=== PATIENT | female | born 1985 ===

== ENCOUNTER 2020-04-12 12:49 | Outpatient (REF) | payer OTHER, SELFPAY | END 2020-04-12 12:50 | disposition home or self-care (01) | LOC: HO.LAB 12:49 | PROVIDERS: Visit Provider Internal Medicine | DX: Z20.828 Contact with and (suspected) exposure to other viral communicable diseases (principal) | CPT/HCPCS: U0003 ==

== ENCOUNTER → 2021-12-19 12:57 | Outpatient (REF) | payer OTHER, SELFPAY ==
--- NOTE | 2021-12-19 13:00 | CA_ITS ---
Transthoracic Echocardiogram Patient (Last, First, Middle): Roberta Medrano J Gender: Female Date of : 1985 Age: 36 Procedure Date: 12/19/2021 Procedure Type: Transthoracic Echocardiogram Location: OP Height: 154.94 cm Weight: 78.47 kg BSA: 1.78 m2 Heart Rate: bpm BP: 150 / 90 mmHg Licensed Esthetician: SB Referring MD: Prasanna Dumont MD Symptoms: Q21.1 - Atrial septal defect Study Quality: Adequate ECG Rhythm: Sinus Conclusions: - 1. Normal LV systolic and diastolic function 2. Mild aortic regurgitation 3. No pericardial effusion Findings Left Ventricle Normal left ventricular size, thickness, and systolic function. The visually estimated ejection fraction is between 60-65%. Spectral Doppler is indicative of a normal filling pattern. Right Ventricle Normal right ventricular cavity size and systolic function. Atria Both atria are normal in size. Interatrial shunt cannot be excluded. reported possible shunting across interatrial septum is not clearly visible on this study. Consider alternative imaging. Aortic Valve The aortic valve structure and function is likely normal. There is no aortic valve stenosis. There is mild aortic valve regurgitation. Mitral Valve Normal mitral valve structure and function. There is trace mitral valve regurgitation. There is no mitral valve stenosis. Pulmonic Valve The pulmonic valve was not well visualized. Tricuspid Valve Likely normal tricuspid valve structure and function. Tricuspid regurgitation envelope is inadequate for calculation of right ventricular systolic pressure. Normal right atrial pressure. Great Vessels All visible segments of the aorta are normal in size. The pulmonary artery was not well visualized. Venous The inferior vena cava is normal in size and collapses greater than 50% with inspiration. Pericardium/Pleural There is no evidence of pericardial effusion. Measurements 2D Linear Measurements IVSd: 1.08 0.6-0.9/0.6-1.0 cm LVIDd: 4.78 3.9-5.3/4.2-5.9 cm LVIDd Index: 2.69 2.4-3.2/2.2-3.1 cm/m2 LVIDs: 3.10 2.0-3.6 cm LVPWd: 0.66 0.7-1.1 cm LA Diam: 3.30 2.7-3.8/3.0-4.0 cm LAIDs Index: 1.85 1.5-2.3 cm/m2 LV Mass: 174.80 67-162/88-224 g LV Mass Index: 98.20 43-95/49-115 g/m2 LVOT Diam: 2.10 3.0+(-)1.3 cm 2D Systolic Function EF 4C: 67.60 >55% Mitral Valve MV Pk E: 1.02 MV PK A: 0.75 MV Decel Time: 230.00 E/A: 1.40 E'Lateral: 11.30 E'Medial: 7.72 E/E' Med: 13.20 E/E' Lat: 9.00 PHT: 67.00 MVA PHT: 3.28 Decel [place]: 4.43 Aortic Valve AoV Pk Chidi: 1.48 AoV Mn Chidi: 1.05 AoV VTI: 0.29 AoV Pk Grad: 9.00 Aov Mn Grad: 5.00 JAMIL Cont.VTI: 2.88 LVOT LVOT Pk Chidi: 1.28 LVOT Mn Chidi: 0.90 LVOT VTI: 0.24 LVOT Pk Grad: 7.00 LVOT Mn Grad: 4.00 LVOT Diam: 2.10 LVOT Area: 3.46 Diastolic Function MV Pk E: 1.02 MV Pk A: 0.75 E/A: 1.40 E'Medial: 7.72 E/E' Med: 13.20 E' Laterial: 11.30 E/E' Lat: 9.00 Right Ventricle TAPSE (mm): 28.10 TVS' Chidi: 14.50 Tricuspid Valve RA Press: 3.00 Great Vessels Aorta Sinus of Valsalva: 3.60 2.0-3.5 cm Ao Asc: 3.20 2.1-3.4 cm Pulmonary Veins Pulm Vein S/D 1.30 Pulmonary Valve PV Pk Chidi: 1.10 Peak PV Grad: 5.00 Shunting QP:QS: 0.90 Updated in Other Vendor System with Status of Final Jonathan Jones MD electronically signed on 12/19/2021 4:27:07 PM with status of Final
== END ==
LOC: HO.CARD 12:57
PROVIDERS: Visit Provider Internal Medicine
DX: Q21.1 Atrial septal defect (principal)
CPT/HCPCS: 93306

== ENCOUNTER → 2022-02-23 11:16 | Outpatient (BNVA) | payer OTHER, SELFPAY | PROVIDERS: PCP Internal Medicine; Visit Provider Internal Medicine | DX: Q21.1 Atrial septal defect (principal); I35.1 Nonrheumatic aortic (valve) insufficiency; I10 Essential (primary) hypertension | CPT/HCPCS: 93005 ==

== ENCOUNTER 2024-04-21 15:47 | Emergency (ER) | payer BC, SELFPAY ==
--- NOTE | ~2024-04-21 | CT_ITS ---
EXAMINATION: CT CHEST WITHOUT CONTRAST CLINICAL INFORMATION: Shortness of breath, cough. COMPARISON: None available. TECHNIQUE: Multidetector volumetric CT imaging of the chest was done. Axial MIP volume rendering provided. Sagittal and coronal reformatted images were obtained. This CT examination was performed using dose optimization techniques as appropriate, variously including the following: *Automated exposure control *Adjustment of mA and/or kV according to patient size (this includes techniques or standardized protocols for targeted exams where dose is matched to indication/reason for exam; i.e. extremities or head) *Use of iterative reconstruction technique DLP: 212 mGy-cm FINDINGS: Evaluation is limited due to motion. LUNGS: Mild diffuse bronchial wall thickening. Scattered groundglass nodules and opacities in the left upper lobe and to a lesser extent left lower lobe. No dense consolidation. Central airways are patent. MEDIASTINUM: Normal heart size. No pericardial effusion. Increased more than usual amount of mediastinal lymph nodes measuring up to 1 cm in short axis, the majority centered in the prevascular space and aortopulmonary window. Limited evaluation of the hilar structures in the absence of intravenous contrast. CORONARY ARTERY CALCIFICATION: None visualized on this study. PLEURA: No pleural effusion or pneumothorax. AXILLA: Dense bilateral breast tissue. No axillary lymphadenopathy. UPPER ABDOMEN: No significant abnormality. OSSEOUS STRUCTURES: Small intermediate density sclerotic focus in the upper sternum measuring 0.5 cm (4:62). CT/CT chest wo IV con IMPRESSION: 1. Scattered groundglass nodules and opacities in the left upper lobe and to a lesser extent left lower lobe suspicious for an atypical infectious/inflammatory process. Recommend follow-up with CT chest in 3-6 months to ensure appropriate resolution. 2. Increased more than usual amount of mediastinal lymph nodes, likely reactive. Attention on follow-up in future examinations is recommended. 3. Small intermediate density sclerotic focus in the upper sternum, nonspecific. Recommend follow-up with the above CT chest in 3-6 months to ensure stability. 4. Dense bilateral breast tissues that would be better characterized with dedicated breast imaging if the patient is due. Fleischner guidelines were followed. Electronically signed by: Cornelia Guallpa MD 04/21/2024 07:02 PM [place]
[2024-04-21 16:16] VITALS: BP 138/79; PULSE 112; RESP 20; TEMP 37; O2SAT 99; BMI 27.8
--- NOTE | 2024-04-21 16:17 | ED_ITS ---
HPI - General Adult General Chief complaint: Dyspnea Stated complaint: Bilateral Pleural Effusion (Referral UrgentCare) Time Seen by Provider: 04/21/24 22:14 Source: patient Mode of arrival: ambulatory Limitations: no limitations History of Present Illness ED Provider: Becka Chavez NP HPI narrative: Patient is a 38-year-old female presents emergency department for referral from urgent care with concern for possible pleural effusions on CXR. Reports over the past week has been experiencing headache, body aches, tactile fevers, dizziness, shortness of breath on exertion. She does admit that since September this year she has been getting sick at least once a month with these flu-like symptoms. She was seen by her primary care doctor in January had some blood work done which she presumed was normal as she did not receive a call, she was advised to take zinc and vitamins. She states that this episode was different because she was experiencing the shortness of breath on exertion which has been abnormal for her. She was concerned that perhaps she may have had pneumonia which prompted her evaluation at urgent care today. She denies any recent unintentional weight loss. Denies personal history of VTE/malignancy. Does not endorse chest pain. Related Data Home Medications ?Medication ?Instructions ?Recorded ?Confirmed ciclopirox 0.77 % topical gel topical 02/23/22 02/23/22 Previous Rx's ?Medication ?Instructions ?Recorded amlodipine 10 mg tablet 10 mg PO DAILY #90 tabs 01/07/24 albuterol sulfate 90 mcg/actuation 2 puff inhalation Q4-6H PRN 04/21/24 aerosol inhaler shortness of breath or wheezing #6.7 grams amoxicillin 500 mg capsule 1,000 mg (2 x 500 mg) PO TID 5 04/21/24 days #30 caps prednisone 20 mg tablet 20 mg PO DAILY #5 tabs 04/21/24 Allergies Allergy/AdvReac Type Severity Reaction Status Date / Time No Known Allergies Allergy Mild NOT Unverified 04/21/24 16:18 APPLICABLE dissolvable sutures Allergy Unknown rash Uncoded 04/21/24 16:18 Telfa Adhesive Dressing Allergy Unknown Rash Uncoded 04/21/24 16:18 Review of Systems 2 Review of Systems: Yes all other systems are reviewed and are negative PMFSH Past Medical History Attestation statement: The following information was validated with the patient. Source: old records reviewed Medical History Essential hypertension Atrial septal defect Surgical History Hx of lumpectomy Hx of hernia repair Hx of tonsillectomy Hx of section Family History Family History (Updated 02/23/22 @ 11:38 by URBANO Niño) Father No problems noted. Mother No problems noted. Social History Social History (Updated 02/23/22 @ 11:38 by URBANO Niño) Patient Tobacco Use Status: Never used Tobacco Smoked in Last 30 Days: No Use of substances other than those prescribed or required for medical reasons: No Advance Directives: No Advance Directives Information Provided: No Do you have a plan to hurt others: No Plan Patient : No Physical Exam ED Vital Signs: Vital Signs - 24 hr 04/21/24 16:16 04/21/24 22:30 Temperature 98.6 F 99.4 F Pulse Rate 112 H 88 Respiratory Rate 20 18 Blood Pressure 138/79 134/81 Pulse Oximetry 99 98 Oxygen Delivery Method Room Air Room Air BMI result Body Mass Index 27.8 Appearance: Alert.?Oriented to person, place and time. No acute distress.?Normal affect. Eyes: Pupils equal, round and reactive to light.? ENT: Pharynx normal.?? Neck: Normal inspection.? Neck supple.?? CVS: Heart sounds normal. Normal heart rate and rhythm.? Pulses normal.?? Respiratory: No respiratory distress.? Lung sounds clear to auscultation bilaterally?? Abdomen: Soft and non-tender. Normoactive bowel sounds. Skin: Skin warm and dry.? Normal skin color.? Extremities: No lower extremity edema.? No calf ttp? Neuro: Moves all extremities spontaneously. Sensation intact bilaterally. No focal neuro deficits. Ambulates with normal steady gait. Course Course Course Narrative: RME performed by Chapis West PA-C. Patient is a 38 year old assigned female at presenting to the emergency department with shortness of breath. Patient states she was seen in the urgent care today and told she had bilateral pleural effusions and needs labs + CT scan. Detailed physical exam and review of systems are deferred to the shield operator. EKG, labs, imaging, and swabs ordered. Patient placed back in the waiting room pending room availability and results. Medical Decision Making Medical Decision Making MDM Narrative: Patient is a 38-year-old female with past medical history of hypertension, atrial septal defect, mild nonrheumatic aortic regurgitation who presents emergency department for evaluation of flu-like symptoms monthly since earlier this year, however the shortness of breath on exertion this time around is the new finding and she was concerned she may have had pneumonia which prompted her concern to the urgent care. Overall well-appearing, nontoxic, afebrile, no respiratory distress. No rash or lesions, urticaria, or evidence of angioedema to suggest allergic reaction/anaphylaxis. No associated chest pain, lower extremity redness pain or swelling, history of VTE/malignancy to suggest ACS. CHF, pericardial effusion, or pulmonary embolism. No palpitations or history of known arrhythmias. No recent trauma or injury, no tracheal deviation, unlikely tension pneumothorax. No acute bleeding or known anemia, no associated dizziness fatigue or chest pain to suggest acute anemia. No history of asthma or COPD to suggest acute exacerbation. CBC is without leukocytosis anemia or thrombocytopenia. No significant electrolyte derangement. No SURINDER. LFTs within normal range. High sensitive troponin below detectable limits. BNP within normal range. HCG is negative. COVID-19/influenza/RSV testing is negative. EKG reveals a sinus tachycardia with ventricular rate of 107, QTC 440, no ST elevation, no ST depression, no T- wave inversion. CT of the chest revealing scattered ground-glass nodules in opacities in the left upper lobe as well as the left lower lobe concerning for atypical infection versus inflammatory process (recommendation for repeat CT in 3-6 months to assess for resolution), likely reactive mediastinal lymph nodes, indeterminate sclerotic focus in the upper sternum (recommendation for repeat CT in 3-6 months), and dense bilateral breast tissues. Patient did have a left breast lumpectomy at the age of 25, reportedly was benign. She reports a great grandmother having breast cancer, but does not have a good understanding a majority of familial history. At this time I am most concerned that she has pneumonia, a walking O2 trial reveals 90-94% . She reports feeling well enough go home, would like to trial outpatient antibiotics. She states that she will return should her symptoms worsen. I have also sent a prescription for an albuterol inhalers low-dose steroid. Discussed CT findings and outpatient follow-up with primary care doctor. All questions were answered. Differential Diagnosis Differential Diagnoses: The differential diagnosis associated with the presentation includes (See narrative above) Admission/Observation Consideration of admission/observation: Escalation of care including admission/observation considered (See narrative above) Lab Data MDM Lab Attestation statement: I reviewed the patient's lab results. (See narrative above) 04/21/24 16:40 04/21/24 16:40 Labs: Lab Results 04/21/24 Range/Units 16:40 WBC 5.1 (4.8-10.8) X10*3/uL RBC 4.37 (4.20-5.50) X10*6/uL Hgb 12.0 (12.0-16.0) g/dl Hct 36.5 L (37.0-47.0) % MCV 83.5 (80.0-98.0) fL MCH 27.5 (27.0-33.0) pg MCHC 32.9 (31.0-35.0) g/dl RDW 12.7 (11.0-16.0) % Plt Count 287 (160-400) X10*3/uL MPV 8.5 L (9.4-12.3) fL Immature Gran % (Auto) 0.4 (0.0-0.4) % Neut % (Auto) 62.5 (45-73) % Lymph % (Auto) 28.4 (20-40) % [place] % (Auto) 6.3 (2-11) % Eos % (Auto) 2.0 (0-4) % Baso % (Auto) 0.4 (0-2) % Lymph # (Auto) 1.5 (1.2-4.9) X10*3/uL [place] # (Auto) 0.3 (0.1-1.2) X10*3/uL Eos # (Auto) 0.1 (0.0-0.4) X10*3/uL Baso # (Auto) 0.0 (0.0-0.2) X10*3/uL Abs Immat Gran (auto) 0.02 (0.00-0.03) X10*3/uL Absolute Neuts (auto) 3.2 (2.0-8.3) x10*3/uL Absolute Nucleated RBC 0.000 (0.0-0.012) X10*3/uL Nucleated RBC % (auto) 0.0 (0.0-0.2) /100WBC Smear Tech's Comments VERIFIED Sodium 143 (135-145) mmol/L Potassium 3.7 (3.3-5.1) mmol/L Chloride 109 H (96-108) mmol/L Carbon Dioxide 25 (22-29) mmol/L Anion Gap 13 (12-20) BUN 11 (9-16) mg/dL Creatinine 0.80 (0.5-1.4) mg/dL Estim Creat Clear Calc 98.5 Estimated GFR > 60 Random Glucose 89 (60-115) mg/dL Calcium 9.7 (8.4-10.2) mg/dL Magnesium 2.0 (1.6-2.6) mg/dL Total Bilirubin 0.3 (0.0-1.0) mg/dL AST 39 H (5-31) U/L ALT 28 (0-31) U/L Alkaline Phosphatase 64 (39-117) U/L Troponin I High Sens < 2.7 (<3.5-17.0) ng/L B-Natriuretic Peptide < 10 (<100) pg/mL Total Protein 7.8 (6.5-8.0) g/dL Albumin 4.3 (3.5-5.0) g/dL Beta HCG, Quant < 2 mIU/mL Influenza Type A (PCR) NEGATIVE (Negative) Influenza Type B (PCR) NEGATIVE (Negative) RSV RNA Qual (PCR) NEGATIVE (Negative) SARS-CoV-2 RNA (RT-PCR) NEGATIVE (Negative) Independent Interpretation I performed an independent interpretation of an: EKG (See narrative above) and CT Scan (Left-sided pneumonia) Radiology Impression Discussion of test interpretation with radiology: I have reviewed the radiologist's reading. Radiologist Impression: CT/CT chest wo IV con IMPRESSION: 1. Scattered groundglass nodules and opacities in the left upper lobe and to a lesser extent left lower lobe suspicious for an atypical infectious/inflammatory process. Recommend follow-up with CT chest in 3-6 months to ensure appropriate resolution. 2. Increased more than usual amount of mediastinal lymph nodes, likely reactive. Attention on follow-up in future examinations is recommended. 3. Small intermediate density sclerotic focus in the upper sternum, nonspecific. Recommend follow-up with the above CT chest in 3-6 months to ensure stability. 4. Dense bilateral breast tissues that would be better characterized with dedicated breast imaging if the patient is due. Prescription Management I considered prescription management with: Antibiotic Discharge Plan Discharge Clinical Impression: Community acquired pneumonia Patient Disposition: Home, Self-Care Instructions: Community Acquired Pneumonia (ED) Additional Instructions: As discussed, based on the CT findings you should follow-up with your primary care doctor, they may consider repeat imaging in 3-6 months to assure that things have improved. Additionally follow-up with any symptoms that have not resolved after the course of treatment. You may return to emergency department any new or worsening symptoms or concerns. Do not stop taking your course of antibiotics earlier skipped any doses even if you begin to feel better. Use the albuterol inhaler as needed for any shortness of breath or difficulty breathing. You can take ibuprofen 200 mg, 3 tablets (600mg) every 6-8 hours as needed for pain, in addition to Tylenol 500 mg, 2 tablets (1,000mg) every 4-6 hours as needed for pain, but not to exceed 3 doses daily (3,000mg).? Prescriptions: New amoxicillin 500 mg capsule 1,000 mg PO TID 5 Days Qty: 30 0RF prednisone 20 mg tablet 20 mg PO DAILY Qty: 5 0RF albuterol sulfate 90 mcg/actuation HFA aerosol inhaler 2 puff inhalation Q4-6H PRN (Reason: shortness of breath or wheezing) Qty: 6.7 0RF No Action amlodipine 10 mg tablet 10 mg PO DAILY Qty: 90 0RF Rx Instructions: please call and schedule follow-up appt for refills ciclopirox 0.77 % gel topical Referrals: Radha Rock MD [Primary Care Provider] - Print Language: Citizen [place]
--- NOTE | 2024-04-21 16:18 | ECG_ITS ---
Test Reason : sob Blood Pressure : / mmHG Vent. Rate : 107 BPM Atrial Rate : 107 BPM P-R Int : 152 ms QRS Dur : 082 ms QT Int : 330 ms P-R-T Axes : 032 -05 042 degrees QTc Int : 440 ms Sinus tachycardia Otherwise normal ECG No previous ECGs available Referred By: Chapis West Electronically Signed By:Leonard Mendoza
[2024-04-21 16:45] LABS: Basophils Percent Auto 0.4 % (0-2); Eosinophils Absolute Auto 0.1 X10*3/uL (0.0-0.4); Hematocrit 36.5 % (37.0-47.0); Imm Gran Abs Auto 0.02 X10*3/uL (0.00-0.03); Imm Gran Pct Auto 0.4 % (0.0-0.4); Lymphocytes Absolute Auto 1.5 X10*3/uL (1.2-4.9); Lymphocytes Percent Auto 28.4 % (20-40); MANUAL DIFF FLAG SCAN; Mean Corpuscular HGB Conc 32.9 g/dl (31.0-35.0); Mean Corpuscular Hemoglobin 27.5 pg (27.0-33.0); Mean Corpuscular Volume 83.5 fL (80.0-98.0); Mean Platelet Volume 8.5 fL (9.4-12.3); Monocytes Absolute Auto 0.3 X10*3/uL (0.1-1.2); Monocytes Percent Auto 6.3 % (2-11); Neutrophils Absolute Auto 3.2 x10*3/uL (2.0-8.3); Neutrophils Percent Auto 62.5 % (45-73); Platelet Count 287 X10*3/uL (160-400); Red Blood Count 4.37 X10*6/uL (4.20-5.50); Red Cell Distribution Width 12.7 % (11.0-16.0); SCAN SMEAR FLAG 1; White Blood Count 5.1 X10*3/uL (4.8-10.8)
[2024-04-21 17:10] LABS: B Type Natriuretic Peptide < 10 pg/mL (<100)
[2024-04-21 17:11] LABS: Alanine Aminotransferase 28 U/L (0-31); Albumin Level 4.3 g/dL (3.5-5.0); Alkaline Phosphatase 64 U/L (39-117); Anion Gap 13 (12-20); Aspartate Amino Transferase 39 U/L (5-31); Bilirubin Total 0.3 mg/dL (0.0-1.0); Blood Urea Nitrogen 11 mg/dL (9-16); Calcium 9.7 mg/dL (8.4-10.2); Carbon Dioxide 25 mmol/L (22-29); Chloride 109 mmol/L (96-108); Creatinine Clr Calc Pharmacy 98.5; Estimated Glomerular Filt Rate > 60; Glucose Random 89 mg/dL (60-115); Potassium 3.7 mmol/L (3.3-5.1); SLIDE REVIEW VERIFIED; Sodium 143 mmol/L (135-145); Total Protein 7.8 g/dL (6.5-8.0)
[2024-04-21 17:12] LABS: HCG Quantitative < 2 mIU/mL; Troponin-I High Sensitivity < 2.7 ng/L (<3.5-17.0)
[2024-04-21 17:35] LABS: Influenza A PCR NEGATIVE (Negative); Influenza B PCR NEGATIVE (Negative); Resp Syncy Virus RNA Qual PCR NEGATIVE (Negative); SARS COV2 PCR INHOUSE NEGATIVE (Negative)
--- NOTE | 2024-04-21 22:17 | PC.NURSE ---
pt from lobby, assume care of pt at this time
[2024-04-21 22:30] VITALS: BP 134/81; PULSE 88; RESP 18; TEMP 37.4; O2SAT 98
[2024-04-21] MEDS: Amoxicillin 500 MG CAPSULE 1000 MG PO (23:53)
[2024-04-22 00:01] VITALS: BP 113/70; PULSE 87; RESP 16; TEMP 37.4; O2SAT 95
== END 2024-04-22 00:02 | disposition home or self-care (01) ==
PROVIDERS: Physician Assistant Medical; Emergency Provider Emergency Medicine; PCP Internal Medicine
DX: J18.9 Pneumonia, unspecified organism (principal); R06.00 Dyspnea, unspecified; J90 Pleural effusion, not elsewhere classified; R10.2 Pelvic and perineal pain; Z03.818 Encounter for observation for suspected exposure to other biological agents ruled out; Z79.899 Other long term (current) drug therapy
CPT/HCPCS: 0241U; 36415; 71250; 80053; 83735; 83880; 84484; 84702; 85025; 93005; 99283; 99285

== ENCOUNTER → 2024-04-21 16:18 | Outpatient (BNV) | payer BC, SELFPAY | PROVIDERS: Emergency Provider Emergency Medicine; PCP Internal Medicine; Visit Provider Internal Medicine Cardiovascular Disease | DX: R00.0 Tachycardia, unspecified (principal) | CPT/HCPCS: 93010 ==

== ENCOUNTER 2024-04-28 13:31 | Outpatient (AMB) | payer BC, SELFPAY ==
[2024-04-28 13:33] VITALS: BP 122/60; PULSE 88; BMI 28.1
--- NOTE | 2024-04-28 13:33 | MHC.OFFVIS ---
Vital Signs 04/28/24 13:33 Height 5 ft 6 in Weight 174 lb 2.643 oz BMI 28.1 BP 122/60 Blood Pressure Location Lt brachial Position Sitting Pulse 88 Pulse Source Pulse Oximeter Intake Visit Reasons: 2 yrs followup w/ekg Allergies No Known Allergies Allergy (Mild, Unverified 04/21/24 16:18) NOT APPLICABLE dissolvable sutures Allergy (Unknown, Uncoded 04/21/24 16:18) rash Telfa Adhesive Dressing Allergy (Unknown, Uncoded 04/21/24 16:18) Rash Medication List - Last Reconciled 04/28/24 by Prasanna Dumont MD albuterol sulfate 90 mcg/actuation 2 puffs inhalation Q4-6H PRN amlodipine 10 mg PO DAILY HPI Comments Details: Roberta returns for follow-up. Has a history of atrial septal defect(vs PFO). She is being followed up every couple of years or so. According to her, told to have atrial septal defect based on echocardiogram from many years ago in [place]. Otherwise, she also developed hypertension after recent . She is maintained on amlodipine. Prior to that, on nifedipine. Blood pressures self is doing quite good. No cardiac complaints. She has been diagnosed with pneumonia and getting treated for that. No specific cardiac concerns. REPLACED BY [facility] Medical History Essential hypertension Atrial septal defect Surgical History Hx of lumpectomy Hx of hernia repair Hx of tonsillectomy Hx of section Family History (Updated 02/23/22 @ 11:38 by UBRANO Niño) Father No problems noted. Mother No problems noted. Social History (Updated 02/23/22 @ 11:38 by URBANO Niño) Patient Tobacco Use Status: Never used Tobacco Review of Systems Const Denies weakness ENT Denies dizziness Card Denies chest pain, Denies chest pain with activity, Denies syncope, Denies rapid heart rate, Denies pedal edema, Denies edema, Denies leg edema, Denies lightheadedness, Reports palpitations, Denies dyspnea, Denies dyspnea on exertion and Denies orthopnea Resp Denies cough, Denies dyspnea and Denies dyspnea on exertion GI Denies hematochezia and Denies change in stool character Musc Denies abnormal gait, Denies muscle cramps, Denies muscle weakness, Denies numbness, Denies radiating pain into limb and Denies tingling Neuro Denies abnormal gait, Denies dizziness, Denies syncope, Denies numbness, Denies tingling and Denies weakness Endo Reports palpitations Physical Exam Vital Signs: Last Vital Signs Pulse 88 04/28/24 13:33 BP 122/60 04/28/24 13:33 BMI result Body Mass Index 28.1 Const General: comfortable and no acute distress Orientation/consciousness: patient oriented x3 HEENT Other: Unremarkable Head: Yes normal to inspection Neck Neck: Yes normal visual inspection Chest Chest palpation & inspection: normal inspection of the chest Resp Auscultation: clear to auscultation bilaterally Cardio Palpation: normal PMI Heart sounds: S1 normal heart sound present, S2 normal heart sound present, no gallops, no murmurs and no rubs GI Palpation (GI): Soft to palpation Back/Spine/Pelvis Other: unremarkable Skin General skin exam: no rashes or lesions noted Neuro General: patient oriented x3 Extrem General: Yes normal to inspection Psych Mental Status: mental status grossly normal Assessment & Plan Assessment & Plan (1) Atrial septal defect: Code(s): Q21.1 - Atrial septal defect Category: Medical Plan: In the last echocardiogram, interatrial shunt was not clearly visualized. Atrial sizes were thought to be normal. Both left ventricular as well as right ventricle function were unremarkable. In prior studies, thought to have had a small degree of interatrial shunting by color Doppler. Overall, either atrial septal defect or PFO, not very clear. In any case, does not appear hemodynamically significant at this time. We will recheck another echocardiogram with bubble study. If there is any suggestion of hemodynamically significant defect, then consider LITZY. (2) Essential hypertension: Code(s): I10 - Essential (primary) hypertension Category: Medical Plan: Stable blood pressure. Continue Amlodipine. (3) Non-rheumatic aortic regurgitation: Code(s): I35.1 - Nonrheumatic aortic (valve) insufficiency Category: Medical Plan: Mild aortic regurgitation seen on the echocardiogram. Not hemodynamically significant. Can be followed. Plan Recent EKG, underlying sinus tachycardia 107/Min; no significant ST-T changes; normal HI and corrected QT. Total time spent including review of data, counseling, documentation coordination of care-31 minutes. Orders: Orders CA echo transthoracic complete Today Q21.1 - Atrial septal defect Coding Level of Care Code Est Pt Level 4 (94119) Diagnoses Atrial septal defect Q21.1 Essential hypertension I10 Non-rheumatic aortic regurgitation I35.1
== END 2024-04-28 13:53 | disposition home or self-care (01) ==
PROVIDERS: PCP Internal Medicine; Visit Provider Internal Medicine
DX: Q21.10 Atrial septal defect, unspecified (principal); I10 Essential (primary) hypertension; I35.1 Nonrheumatic aortic (valve) insufficiency
CPT/HCPCS: 99214

== ENCOUNTER → 2024-05-28 08:57 | Outpatient (REF) | payer BC, SELFPAY ==
--- NOTE | 2024-05-28 09:03 | CA_ITS ---
Transthoracic Echocardiogram Patient (Last, First, Middle): Roberta Medrano J Gender: Female Date of : 1985 Age: 38 Procedure Date: 05/28/2024 Procedure Type: Transthoracic Echocardiogram Location: OP Height: 167.64 cm Weight: 78.93 kg BSA: 1.89 m2 Heart Rate: bpm BP: 122 / 80 mmHg Stamping Press Operator: ARACELY Referring MD: Prasanna Dumnot MD Symptoms: Q21.1 - Atrial septal defect Study Quality: Adequate Conclusions: - The left ventricular systolic function is normal. The calculated ejection fraction is 57% by biplane method. - Trace to mild aortic regurgitation. - There is no evidence of interatrial shunt by color Doppler and contrast. Findings Left Ventricle Normal left ventricular cavity size. The left ventricular systolic function is normal. The calculated ejection fraction is 57% by biplane method. There is no evidence of regional wall motion abnormalities. Diastolic function is normal for age. There is mild septal and mild basal asymmetric hypertrophy. Right Ventricle Normal right ventricular cavity size and systolic function. Atria Both atria are normal in size. There is no evidence of interatrial shunt by color Doppler and contrast. Bubble study done with rest and Valsalva. Aortic Valve There is a normal trileaflet aortic valve. There is no aortic valve stenosis. Trace to mild aortic regurgitation. Mitral Valve The mitral valve appears normal. There is mild mitral valve regurgitation. There is no mitral valve stenosis. Pulmonic Valve The pulmonic valve is likely normal. Tricuspid Valve There is trace tricuspid valve regurgitation. There is no evidence of pulmonary hypertension. Great Vessels The asc aorta is normal in size. Venous The inferior vena cava is normal in size and collapses greater than 50% with inspiration. Pericardium/Pleural There is no evidence of pericardial effusion. Prior Study Comparison No significant change compared to prior study dated: 12/19/2021. Measurements 2D Linear Measurements IVSd: 1.09 0.6-0.9/0.6-1.0 cm LVIDd: 4.76 3.9-5.3/4.2-5.9 cm LVIDd Index: 2.52 2.4-3.2/2.2-3.1 cm/m2 LVIDs: 3.11 2.0-3.6 cm LVPWd: 0.94 0.7-1.1 cm Ao Root: 3.40 2.1-3.5 cm LA Diam: 3.20 2.7-3.8/3.0-4.0 cm LAIDs Index: 1.69 1.5-2.3 cm/m2 LV Mass: 213.55 67-162/88-224 g LV Mass Index: 112.99 43-95/49-115 g/m2 LVOT Diam: 2.00 3.0+(-)1.3 cm 2D Systolic Function EF 4C: 56.10 >55% EF 2C: 58.00 >55% EF BiP: 57.20 >55% Mitral Valve MV Pk E: 1.09 MV PK A: 0.71 MV Decel Time: 158.00 E/A: 1.50 E'Lateral: 11.10 E'Medial: 7.51 E/E' Med: 14.50 E/E' Lat: 9.80 PHT: 46.00 MVA PHT: 4.78 Decel Lucas: 6.87 Aortic Valve AoV Pk Chidi: 1.32 AoV Mn Chidi: 0.98 AoV VTI: 0.31 AoV Pk Grad: 7.00 Aov Mn Grad: 4.00 JAMIL Cont.VTI: 2.40 AI Pk Chidi: 3.99 AI Lucas: 2.24 LVOT LVOT Pk Chidi: 1.10 LVOT Mn Chidi: 0.75 LVOT VTI: 0.23 LVOT Pk Grad: 5.00 LVOT Mn Grad: 3.00 LVOT Diam: 2.00 LVOT Area: 3.14 Diastolic Function MV Pk E: 1.09 MV Pk A: 0.71 E/A: 1.50 E'Medial: 7.51 E/E' Med: 14.50 E' Laterial: 11.10 E/E' Lat: 9.80 Right Ventricle TAPSE (mm): 27.40 TVS' Chidi: 14.70 Tricuspid Valve TR Pk Chidi: 1.85 TR Pk Grad: 14.00 RA Press: 8.00 RVSP: 22.00 Great Vessels Aorta Ao Root-2D: 3.40 2.0-3.7 cm Ao Asc: 3.50 2.1-3.4 cm Updated in Other Vendor System with Status of Final Prasanna Dumont MD electronically signed on 05/30/2024 3:33:00 PM with status of Final
== END ==
LOC: HO.CARD 08:57
PROVIDERS: PCP Nurse Practitioner Primary Care; Visit Provider Internal Medicine
DX: Q21.10 Atrial septal defect, unspecified (principal)
CPT/HCPCS: 93306

== ENCOUNTER → 2024-05-28 09:03 | Outpatient (BNV) | payer BC, SELFPAY | PROVIDERS: PCP Nurse Practitioner Primary Care; Visit Provider Internal Medicine | DX: I35.1 Nonrheumatic aortic (valve) insufficiency (principal); I34.0 Nonrheumatic mitral (valve) insufficiency; I42.2 Other hypertrophic cardiomyopathy | CPT/HCPCS: 93306 ==